=== PATIENT | male | born 1955 | race Caucasian/White ===

== ENCOUNTER 2024-04-22 01:04 | Inpatient (IN) | payer BC, SELFPAY ==
--- OUTSIDE RECORDS SUMMARY | 2024-04-22 01:10 | XMS_ITS | Continuity of Care Document ---
Author Organization [facility] ter Address [address] [place] [address]- Care Team Providers Care Advanced Practice Registered Nurse Name Role Phone Lesley HUITRON, Girma Brown Primary [facility] - 05/12/[address] [address]- [facility] Attending Physician: Chetan HUITRON, Anthony Hampton
--- OUTSIDE RECORDS SUMMARY | 2024-04-22 01:10 | XMS_ITS | Continuity of Care Document ---
Author Organization [facility] ter Address [address] [place] [address]- Care Team Providers Care Instrumentation Specialist Name Role Phone Lesley HUITRON, Girma Brown Primary Care Physician [facility] Date(s): 12/24/19 - 12/25/[address] [address]- [facility] Attending Physician: Chetan HUITRON, Anthony Hampton
--- OUTSIDE RECORDS SUMMARY | 2024-04-22 01:10 | XMS_ITS | Continuity of Care Document ---
Author Organization [facility] ter Address [address] [place] [address]- Care Team Providers Care Hospice Clinical Manager Name Role Phone Lesley HUITRON, Girma Brown Primary Care Physician [facility] Date(s): 08/04/19 - 08/05/[address] [address]- [facility] Attending Physician: Chetan HUITRON, Anthony Hampton
--- OUTSIDE RECORDS SUMMARY | 2024-04-22 01:10 | XMS_ITS | Continuity of Care Document ---
Author Organization [facility] ter Address [address] [place] [address]- Care Team Providers Care Belt And Link Shop Supervisor Name Role Phone Lesley HUITRON, Girma Brown Primary Care Physician [facility] 10/01/19 - 10/02/[address] [address]- [facility] Attending Physician: Chetan HUITRON, Anthony Hampton
--- OUTSIDE RECORDS SUMMARY | 2024-04-22 01:10 | XMS_ITS | Continuity of Care Document ---
Author Organization [facility] ter Address [address] [place] [address]- Care Team Providers Care Train Operations Manager Name Role Phone Lesley HUITRON, Girma Brown Primary Care Physician [facility] Date[facility]s): 01/21/20 - 02/19/[address] [address]- [facility] Attending Physician: Chetan HUITRON, Anthony Hampton
--- OUTSIDE RECORDS SUMMARY | 2024-04-22 01:10 | XMS_ITS | Continuity of Care Document ---
Author Organization [facility] ter Address [address] [place] [address]- Care Team Providers Care Wall Covering Installer Name Role Phone Lesley HUITRON, Girma Brown Primary Care Physician [facility] Date[facility]s): 04/13/20 - 04/14/[address] [address]- [facility] Attending Physician: Chetan HUITRON, Anthony Hampton
--- OUTSIDE RECORDS SUMMARY | 2024-04-22 01:10 | XMS_ITS | Continuity of Care Document ---
Author Organization [facility] ter Address [address] [place] [address]- Care Team Providers Care Pre Billing Clinician Name Role Phone Lesley HUITRON, Girma Brown Primary Care Physician [facility] Date[facility]s): 03/16/20 - 03/17/[address] [address]- [facility] Attending Physician: Chetan HUITRON, Anthony Hampton
--- OUTSIDE RECORDS SUMMARY | 2024-04-22 01:10 | XMS_ITS | Continuity of Care Document ---
Author Organization [facility] ter Address [address] [place] [address]- Care Team Providers Care Blow Molding Machine Operator Name Role Phone Lesley HUITRON, Girma Brown Primary Care Physician [facility]s): 01/21/20 - 01/22/[address] [address]- [facility] Attending Physician: Chetan HUITRON, Anthony Hampton
--- OUTSIDE RECORDS SUMMARY | 2024-04-22 01:10 | XMS_ITS | Continuity of Care Document ---
Author Organization [facility] ter Address [address] [place] [address]- Care Team Providers Care Mill Stenciler Name Role Phone Lesley HUITRON, Girma Brown Primary Care Physician [facility]s): 07/08/19 - 08/05/[address] [address]- [facility] Attending Physician: Chetan HUITRON, Anthony Hampton
--- OUTSIDE RECORDS SUMMARY | 2024-04-22 01:10 | XMS_ITS | Continuity of Care Document ---
Author Organization [facility] ter Address [address] [place] [address]- Care Team Providers Care Regional Director Of Finance Name Role Phone Lesley HUITRON, Girma Brown Primary Care Physician [phone] Encounter [facility] Date(s): 11/26/19 - 11/27/[address] [address]- [facility] Attending Physician: Chetan HUITRON, Anthony Hampton
--- OUTSIDE RECORDS SUMMARY | 2024-04-22 01:10 | XMS_ITS | Continuity of Care Document ---
Author Organization [facility] ter Address [address] [place] [address]- Care Team Providers Care Performance Makeup Artist Name Role Phone Lesley HUITRON, Girma Brown Primary Care Physician [facility](s): 10/30/19 - 11/27/[address] [address]- [facility] Attending Physician: Chetan HUITRON, Anthony Hampton
--- OUTSIDE RECORDS SUMMARY | 2024-04-22 01:10 | XMS_ITS | Continuity of Care Document ---
Author Organization [facility] ter Address [address] [place] [address]- Care Team Providers Care Circuit Board Assembler Name Role Phone Lesley HUITRON, Girma Brown Primary Care Physician [facility] 02/17/20 - 02/18/[address] [address]- [facility] Attending Physician: Chetan HUITRON, Anthony Hampton
--- OUTSIDE RECORDS SUMMARY | 2024-04-22 01:10 | XMS_ITS | Continuity of Care Document ---
Author Organization [facility] ter Address [address] [place] [address]- Care Team Providers Care Photostat Operator Name Role Phone Lesley HUITRON, Girma Brown Primary Care Physician [phone] [facility] 09/01/19 - 09/02/[address] [address]- [facility] Attending Physician: Chetan HUITRON, Anthony Hampton
--- OUTSIDE RECORDS SUMMARY | 2024-04-22 01:10 | XMS_ITS | Continuity of Care Document ---
Author Organization [facility] ter Address [address] [place] [address]- Care Team Providers Care Manager Operations Research Name Role Phone Lesley HUITRON, Girma Brown Primary Care Physician [phone] [facility]s): 10/01/19 - 10/30/[address] [address]- [facility] Attending Physician: Chetan HUITRON, Anthony Hampton
--- OUTSIDE RECORDS SUMMARY | 2024-04-22 01:10 | XMS_ITS | Continuity of Care Document ---
Author Organization [facility] ter Address [address] [place] [address]- Care Team Providers Care Loan And Credit Manager Name Role Phone Lesley HUITRON, Girma Brown Primary Care Physician [facility]s): 10/23/19 - 10/30/[address] [address]- [facility] Attending Physician: Chetan HUITRON, Anthony Hampton
--- OUTSIDE RECORDS SUMMARY | 2024-04-22 01:10 | XMS_ITS | Continuity of Care Document ---
Author Organization [facility] ter Address [address] [place] [address]- Care Team Providers Care Hvac Residential Service Technician Name Role Phone Lesley HUITRON, Girma Brown Primary Care Physician [facility]counter [facility](s[facility] 10/29/19 - 10/30/[address] [address]- [facility] Attending Physician: Chetan HUITRON, Anthony Hampton
[2024-04-22 01:30] VITALS: BP 141/80; PULSE 88; RESP 18; TEMP 36.6; O2SAT 96
[2024-04-22 01:45] VITALS: BMI 27.6
--- NOTE | 2024-04-22 03:45 | PC.ADMIT ---
Josh is a 68 year old male that presented to [facility] ED due to not feeling himself . Patient reported that he stopped taking his medications for 2-3 days and has not eaten and spent the entire weekend in bed, coming out of the bed just to use the bathroom. Patient presented with thoughts of SI at the time of admission at [facility]. Patient reporting poor social and coping skills and wanted a way to improve them. Patient was UTOX negative. On arrival to the [facility] at 0130 patient signed in on a CV. Patient reported anxiety 01/13 with depression /. Patient denies any current SI/HI and stated he feels he is able to notify staff if this should change. Patient denies any AH/VH. Patient does not use alcohol or any other street drugs. Patient is diabetic and utilizes oral agents and Lantus insulin. Patient skin check done and only issues noted was dry feet with thick toenails. Patient placed on 15 minute safety checks. Dietary consult ordered due to patient not eating for 2-4 days. H&P will need to be done by hospitalist, was notified at 0230. Patient is a non smoker and declined the flu shot. Only medical item noted was his creatinine clearance is low. An EKG and am labs have been ordered for 04/22/2024 in the am.
[2024-04-22 07:51] VITALS: BP 147/76; PULSE 88; RESP 18; TEMP 36.9; O2SAT 94
[2024-04-22] MEDS: DULoxetine HCl 60 MG CAPSULE.DR PO (08:18)
[2024-04-22] MEDS: Empagliflozin 25 MG TABLET PO (08:19)
[2024-04-22] MEDS: Atorvastatin Calcium 80 MG TABLET PO (08:19)
[2024-04-22] MEDS: metFORMIN HCl 1,000 MG TABLET 1000 MG PO ×2 (08:19→18:17)
[2024-04-22] MEDS: lisinopriL 5 MG TABLET PO (08:20)
[2024-04-22] MEDS: buPROPion HCL 75 MG TABLET PO (08:20)
[2024-04-22] MEDS: Metoprolol Succinate ER 50 MG TAB.ER.24H PO (08:20)
[2024-04-22] MEDS: Acetaminophen 325 MG TABLET 650 MG PO (08:27)
--- NOTE | 2024-04-22 09:00 | ECG_ITS ---
Test Reason : Baseline Blood Pressure : / mmHG Vent. Rate : 089 BPM Atrial Rate : 089 BPM P-R Int : 128 ms QRS Dur : 084 ms QT Int : 362 ms P-R-T Axes : 057 -41 075 degrees QTc Int : 440 ms Normal sinus rhythm Left axis deviation Inferior infarct , age undetermined Abnormal ECG No previous ECGs available Referred By: Daljit Johansen Electronically Signed By:FLAVIA THORNTON
[2024-04-22 09:11] LABS: Estimated Average Glucose 140 mg/dL; Hemoglobin A1c % 6.5 % (<6.0)
[2024-04-22 09:18] LABS: Alanine Aminotransferase 19 U/L (0-40); Albumin Level 4.6 g/dL (3.5-5.0); Alkaline Phosphatase 51 U/L (39-117); Anion Gap 16 (12-20); Aspartate Amino Transferase 24 U/L (5-37); Bilirubin Total 0.5 mg/dL (0.0-1.0); Blood Urea Nitrogen 21 mg/dL (9-16); Calcium 10.1 mg/dL (8.4-10.2); Carbon Dioxide 26 mmol/L (22-29); Chloride 100 mmol/L (96-108); Cholesterol 134 mg/dL (<200); Creatinine Clr Calc Pharmacy 59.3; Estimated Glomerular Filt Rate > 60; Glucose Fasting 155 mg/dL (60-99); HDL Cholesterol 33 mg/dL (>40); LDL Cholesterol Calculated 64 mg/dL (<100); Potassium 4.3 mmol/L (3.3-5.1); Sodium 138 mmol/L (135-145); Total Protein 8.1 g/dL (6.5-8.0); Triglycerides 186 mg/dL (<150)
[2024-04-22 09:37] LABS: TSH reflex Free T4 1.56 uIU/mL (0.32-4.0)
[2024-04-22] MEDS: Ezetimibe 10 MG TABLET PO (09:58)
--- NOTE | 2024-04-22 10:09 | HO.PM.IMCN ---
History of Present Illness Data of Consult Service Date: 04/22/24 Requesting physician: Daljit Johansen Primary Care Provider: Unknown Physician HPI Reason for consult: Medical H and P 68-year-old male with history of insulin-dependent type 2 diabetes, hypertension, mood disorder, hyperlipidemia admitted to adult Psychiatry consult placed hospitalist service for medical H and P. The patient is unavailable to me at time of examination as he is currently meeting with another provider/staff member, however there does not appear to be any acute medical issues person at this time. RN reports no complaints from patient except for dry feet. While at [facility] ED, hematology studies unremarkable. Renal function with slightly bumped at 1.25, electrolyte levels normal except for chloride 97, CO2 18 but improved to 21. Glucose was 182. Hepatic function within normal limits. Urine tox screen negative. Urinalysis with 4+ glucosuria, 2+ ketones, elevated specific gravity but not indicative of infection. EKG showed NSR, rate ED without any acute ischemic changes, EKG unchanged from priors. Review of Systems Review of Systems: Yes Other (unavailable at time of exam) [facility] Medical History Type 2 diabetes mellitus Social History Household Members: Significant Other and Children Housing: House Do you presently have visiting nurse or other home services: No Patient Tobacco Use Status: Never used Tobacco Smoked in Last 30 Days: No Patient Interested in Nicotine Replacement: No Patient Given Instructions on How to Stop Smoking: No Second Hand Smoke Exposure: No Use of substances other than those prescribed or required for medical reasons: No Currently Displaying Signs/Symptoms of Drug Intoxication Withdrawal: No Any prior treatment program specific to substance use: No Have you been hit, kicked, punched, or otherwise hurt by someone within the past year? If so, by whom?: No Do you feel safe in your current relationship?: Yes Is there a partner from a previous relationship who is making you feel unsafe now?: No Are you made to feel afraid or neglected: No Spiritual Healthcare Practices: none reported Spiritism Healthcare Practices: none reported Cultural Healthcare Practices: none reported Advance Directives: No Advance Directives Information Provided: Yes Do you have thoughts of harming others: None Do you have a plan to hurt others: No Plan Recently lost weight without trying: Yes How much weight loss: Unsure Eating poorly because of decreased appetite: Yes Nutrition screen score: 5 Nutrition Risks: Poor intake 0-25% >4 days Poor oral hygiene: No service: No Sexual orientation: Straight/Heterosexual Meds Allergies Allergy/AdvReac Type Severity Reaction Status Date / Time No Known Allergies Allergy Verified 04/22/24 01:43 Active Medications: Current Medications Acetaminophen (Acetaminophen 325 Mg Tablet) 650 mg PO Q6H PRN PRN Reason: Headache/Pain Mild Scale (1-3) Last Admin: 04/22/24 08:27 Dose: 650 mg Al Hydroxide/Mg Hydroxide (Magnesium Hydrox/Alum Hydrox 30 Ml Oral.Susp) 30 ml PO Q6H PRN PRN Reason: Heartburn/Nausea Atorvastatin Calcium (Atorvastatin Calcium 80 Mg Tablet) 80 mg PO DAILY [facility] Last Admin: 04/22/24 08:19 Dose: 80 mg Bupropion HCl (Bupropion Hcl 75 Mg Tablet) 75 mg PO DAILY [facility] Last Admin: 04/22/24 08:20 Dose: 75 mg Duloxetine HCl (Duloxetine Hcl 60 Mg Capsule.Dr) 60 mg PO DAILY [facility] Last Admin: 04/22/24 08:18 Dose: 60 mg Ezetimibe (Ezetimibe 10 Mg Tablet) 10 mg PO DAILY [facility] Last Admin: 04/22/24 09:58 Dose: 10 mg Empagliflozin (Empagliflozin 25 Mg Tablet) 25 mg PO DAILY [facility] Last Admin: 04/22/24 08:19 Dose: 25 mg Hydroxyzine HCl (Hydroxyzine Hcl 25 Mg Tablet) 25 mg PO Q6H PRN PRN Reason: Anxiety Lisinopril (Lisinopril 5 Mg Tablet) 5 mg PO DAILY [facility]; Protocol Last Admin: 04/22/24 08:20 Dose: 5 mg Magnesium Hydroxide (Milk Of Magnesia 30 Ml Oral.Susp) 30 ml PO DAILY PRN PRN Reason: Constipation Metformin HCl (Metformin Hcl 1,000 Mg Tablet) 1,000 mg PO BID [facility] Last Admin: 04/22/24 08:19 Dose: 1,000 mg Metoprolol Succinate (Metoprolol Succinate Er 50 Mg Tab.Er.24h) 50 mg PO DAILY [facility]; Protocol Last Admin: 04/22/24 08:20 Dose: 50 mg Nicotine (Nicotine 21 Mg Patch.Td24) 21 mg TRANSDERMA DAILY PRN PRN Reason: smoking cessation Nicotine Polacrilex (Nicotine Polacrilex 2 Mg Gum) 4 mg BUCCAL Q2H PRN PRN Reason: Nicotine Cravings Non-Formulary Medication (Fenofibrate Micronized) 200 mg PO DAILY [facility]ARY Trazodone HCl (Trazodone Hcl 50 Mg Tablet) 50 mg PO BEDTIME MRX1 PRN PRN Reason: Insomnia Trazodone HCl (Trazodone Hcl 50 Mg Tablet) 50 mg PO BEDTIME MARY Trazodone HCl (Trazodone Hcl 50 Mg Tablet) 50 mg PO BEDTIME MARY Home Medications ?Medication ?Instructions ?Recorded ?Confirmed ?Last Taken ?Type bupropion HCl 75 mg tablet 75 mg PO QAM 04/22/24 04/22/24 04/18/24 09:00 History 75 mg duloxetine 60 mg capsule,delayed 60 mg PO DAILY 04/22/24 04/22/24 04/18/24 09:00 History release 60 mg empagliflozin 25 mg tablet 25 mg PO DAILY 04/22/24 04/22/24 04/18/24 09:00 History (Jardiance) 25 mg ezetimibe 10 mg tablet 10 mg PO DAILY 04/22/24 04/22/24 04/18/24 09:00 History 10 mg fenofibrate micronized 200 mg 200 mg PO DAILY 04/22/24 04/22/24 04/18/24 09:00 History capsule 200 mg insulin glargine 100 unit/mL 40 unit subcut BID 04/22/24 04/22/24 04/18/24 21:00 History subcutaneous solution (Lantus U-100 Insulin) lisinopril 5 mg tablet 5 mg PO DAILY 04/22/24 04/22/24 04/18/24 09:00 History 5 mg metformin 1,000 mg tablet 1,000 mg PO BID 04/22/24 04/22/24 04/18/24 18:00 History 1000 mg metoprolol succinate 50 mg 50 mg PO DAILY 04/22/24 04/22/24 04/18/24 09:00 History tablet,extended release 24 hr 50 mg rosuvastatin 20 mg tablet 20 mg PO BEDTIME 04/22/24 04/22/24 04/18/24 21:00 History 20 mg trazodone 50 mg tablet 50 mg PO BEDTIME 04/22/24 04/22/2424 21:00 History 50 mg Physical Exam Vital Signs and Narrative: Vital Signs: Last Vital Signs Temp 98.5 F 04/22/24 07:51 Pulse 88 04/22/24 07:51 Resp 18 04/22/24 07:51 BP 147/76 H 04/22/24 07:51 Pulse Ox 94 04/22/24 07:51 O2 Del Method Room Air 04/22/24 07:51 BMI result Body Mass Index 27.6 Pt unavailable to meet as he is meeting with another provider/staff member Results Labs 04/22/24 08:45 Labs: Laboratory Results - last 24 hr 04/22/24 08:45 Anion Gap 16 Estim Creat Clear Calc 59.3 Estimated GFR > 60 Fasting Glucose 155 H Estimat Average Glucose 140 Hemoglobin A1c % 6.5 H Calcium 10.1 Total Bilirubin 0.5 AST 24 ALT 19 Alkaline Phosphatase 51 Total Protein 8.1 H Albumin 4.6 Triglycerides 186 H Cholesterol 134 LDL Cholesterol, Calc 64 HDL Cholesterol 33 L TSH 1.56 Assessment and Plan (1) Routine medical exam: Status: Acute Plan 68-year-old male with history of insulin-dependent type 2 diabetes, hypertension, mood disorder, hyperlipidemia admitted to adult Psychiatry consult placed hospitalist service for medical H and P. #Mood disorder -plan per psych #Type 2 DM -check baseline hgb a1c to evlauate overall diabetes control -continue lantus, metformin, jardiance (for now) -poc glucose. Recommend diabetic diet/snacking with education reinforcement from staff to prevent hyperglycemia #HTN -continue metoprolol, lisinopril #HLD -statin, zetia Given jardiance use with mildly elevated creat, slightly low co2 (18), +ketones, check BMP, VBG, beta hydroxybutyrate now to evaluate for euglycemic keotacidosis though patient is asymptomatic and results could be related to dehydration. Will follow for results
--- NOTE | 2024-04-22 10:17 | MHC.CLN ---
NUTRITION CONSULT FOR PATIENT NOT EATING FOR PAST 3-4 DAYS. VISITED WITH PATIENT ON UNIT. STATED THAT HE ATE WHILE HERE LAST NIGHT AND ATE BREAKFAST (100%). AWARE THAT CAN MAKE OWN FOOD CHOICES AND THAT SNACKS AVAILABLE ON THE UNIT. APPEARS WELL NOURISHED. NO FOOD CONCERNS OR LACK OF APPETITE NOTED. NO ADDITIONAL NUTRITION INTERVENTIONS AT THIS TIME.
--- NOTE | 2024-04-22 10:43 | P.HPPS_ITS ---
HPI Date of Service: 04/22/24 Chief Complaint: SI, Unspecified Depressive Disorder Sources of Information: patient interviewed, chart reviewed and crisis/core team assessment reviewed Additional Sources of Information: Pt seen at 11am on 04/22/24 HPI Subjective Notes: Lay Warning and Conditional Voluntary Narrative: Mr. Teixeira is a 68 year-old male with hx of opioid use disorder in early remission per pt, depression who was brought by family to [facility] due to worsening of depression, not eating, no motivation, oversleeping. He reported passive suicidal thoughts. Utox was negative for barbiturate, cocaine, cannabinoids and opioids. Not tested for synthetic options, which pt reports hx of abuse. On the unit, pt presents as withdrawn, some delayed in responses, he reports depressed mood for the past 2 months. He reports in past week increase in symptoms of depression. He endorses anhedonia, over sleeping, no appetite, depressed mood. He denies any plan or intent to harm himself but does report thinking about dying and thoughts that life is not worth living. He reports hx of 10 years of buying percocet on the streets. He is unable to tell this property underwriter amount, other than it depended on whether he had money or not and reports it was not daily. He denies recent use of opioids. However, per [facility] documentation, his suspects that he may have relapsed on opioids. Utox for synthetic opioids not completed at [facility]. He denies hx of VH/AH. He denies hx of suicide attempts. He denies periods of increase energy, grandiose delusions. No prior psychiatric admissions. Past Psychiatric History: Inpt: none prior OP: none. He reports in the past he had OP therapy at [facility]. Past trial meds: wellbutrin, cymbalta, suboxone Medical Evaluation Reviewed: Yes cbc unremarkable. CMP with anion gap metabolic acidosis. UA without signs of UTI, but did have elevated ketones, which assumed in combination with metabolic acidosis due to dehydration. He was given IV fluids with improvement in metabolic acidosis. [facility] Medical History Type 2 diabetes mellitus Family History: denies Social History: Pt with current partner, Anat for the past 26 years. They have a son together. He has worked for the past 24 years at [employer] in [place]. Substance History: He reports 10 year hx of buying percocets on the streets. He is not able to tell this property underwriter amount. He reports he stopped using since Sep 2023. He denies any recent use, although suspects he may have relapsed. He denies cocaine or alcohol use. Trauma History: denies Diagnostics Vital Signs (24Hr): Vital Signs - 24 hr 04/22/24 01:30 04/22/24 07:51 Temperature 97.9 F 98.5 F Pulse Rate 88 88 Respiratory Rate 18 18 Blood Pressure 141/80 H 147/76 H Pulse Oximetry 96 94 Oxygen Delivery Method Room Air Room Air BMI result Body Mass Index 27.6 Labs 04/22/24 16:54 Labs: Laboratory Results - last 48 hr 04/22/24 08:45 Sodium 138 Potassium 4.3 Chloride 100 Carbon Dioxide 26 Anion Gap 16 BUN 21 H Creatinine 1.20 Estim Creat Clear Calc 59.3 Estimated GFR > 60 Fasting Glucose 155 H Estimat Average Glucose 140 Hemoglobin A1c % 6.5 H Calcium 10.1 Total Bilirubin 0.5 AST 24 ALT 19 Alkaline Phosphatase 51 Total Protein 8.1 H Albumin 4.6 Triglycerides 186 H Cholesterol 134 LDL Cholesterol, Calc 64 HDL Cholesterol 33 L TSH 1.56 Meds/Allergies Meds Home Medications ?Medication ?Instructions ?Recorded ?Confirmed ?Type bupropion HCl 75 mg tablet 75 mg PO QAM 04/22/24 04/22/24 History duloxetine 60 mg capsule,delayed 60 mg PO DAILY 04/22/24 04/22/24 History release empagliflozin 25 mg tablet 25 mg PO DAILY 04/22/24 04/22/24 History (Jard[facility]) ezetimibe 10 mg tablet 10 mg PO DAILY 04/22/24 04/22/24 History fenofibrate micronized 200 mg 200 mg PO DAILY 04/22/24 04/22/24 History capsule insulin glargine 100 unit/mL 40 unit subcut BID 04/22/24 04/22/24 History subcutaneous solution (Lantus U-100 Insulin) lisinopril 5 mg tablet 5 mg PO DAILY 04/22/24 04/22/24 History metformin 1,000 mg tablet 1,000 mg PO BID 04/22/24 04/22/24 History metoprolol succinate 50 mg 50 mg PO DAILY 04/22/24 04/22/24 History tablet,extended release 24 hr rosuvastatin 20 mg tablet 20 mg PO BEDTIME 04/22/24 04/22/24 History trazodone 50 mg tablet 50 mg PO BEDTIME 04/22/24 04/22/24 History Allergies Allergies Allergy/AdvReac Type Severity Reaction Status Date / Time No Known Allergies Allergy Verified 04/22/24 01:43 Mental Status Exam Mental Status Exam Narrative: Appearance: wearing hospital gown, sitting, staring in the dark, in NAD Behavior: cooperative Psychomotor: some retardation noted Speech: clear, some delayed in response, spontaneous TP: linear TC: feeling depressed, worried about impact of his mood on his family Mood: depressed Affect: constricted, congruent SI: passive, no plan or intent HI: none VH/AH: none Delusions: none Insight/judgment: poor x 2. Memory/cog: alert, oriented x 3. no formal cognitive assessment. Assessment & Plan Assessment & Plan (1) MDD (major depressive disorder), recurrent episode, severe: Status: Acute Code(s): F33.2 - Major depressive disorder, recurrent severe without psychotic features (2) Opioid use disorder, moderate, in early remission: Status: Acute Code(s): F11.21 - Opioid dependence, in remission Plan Mr. Teixeira is a 68 year-old male with hx of MDD, who was brought in by family to [facility] due to increase depression in past week, but depressed for about 2 months. He presents with symptoms of anhedonia, depressed mood, decrease appetite, over sleeping, passive SI. Utox neg at [facility] for cocaine, cannabinoids, barbiturates, opioids. No utox completed for synthetic opioids, which is what he usually would misuse and buy on the streets. We discussed risks, benefits and alternative treatment options. He agreed to increase wellbutrin to 150mg po daily and change to extended release formulation. He also agree to increase cymbalta to 90mg po daily. PLAN 1. Admit to [facility], CV, 15 minutes checks for safety. 2. increase wellbutrin and change to extended formulation to 150mg po daily. Increase cymbalta to 90mg po daily. 3. obtain collateral information 4. aftercare planning. Patient educated on: diagnosis Informed Consent: understands Reason for continued inpatient stay Substantial Risk for: harm to self and inability to function Statement Statement: I have reviewed the history and physical and performed a pertinent examination on my patient. No changes have occurred unless specified. If the History and Physical was not performed prior to admission, the Hospitalist's service will be consulted for completing the admission physical. Time Spent With Patient Time: Total time managing care of this patient today __35__ minutes.
[2024-04-22 15:09] LABS: Folate 12.2 ng/mL (> or = 4.0); Vitamin B12 369 pg/mL (200-900)
[2024-04-22 17:10] LABS: VBG Base Excess 0.4 mmol/L; VBG HCO3 25 mmol/L (22-26); VBG pCO2 41 mmHg; VBG pH 7.39 (7.32-7.43); VBG pO2 36 mmHg
[2024-04-22 17:18] LABS: Venous Blood Gas Refer to POC result
[2024-04-22 17:35] LABS: Anion Gap 17 (12-20); Beta-Hydroxybutyrate 0.16 mmol/L (0.02-0.27); Blood Urea Nitrogen 25 mg/dL (9-16); Calcium 10.8 mg/dL (8.4-10.2); Carbon Dioxide 25 mmol/L (22-29); Chloride 101 mmol/L (96-108); Creatinine Clr Calc Pharmacy 52.7; Estimated Glomerular Filt Rate 53; Glucose Random 193 mg/dL (60-115); Potassium 4.7 mmol/L (3.3-5.1); Sodium 138 mmol/L (135-145)
[2024-04-22 18:09] LABS: Glucose, Whole Blood 181 mg/dL (60-115)
[2024-04-22] MEDS: Insulin Glargine,Hum.rec.anlog 100 UNIT/ML 10 ML VIAL 40 UNIT SUBCUT (18:17)
[2024-04-22 20:00] VITALS: BP 147/76; PULSE 88; RESP 18; TEMP 36.9; O2SAT 94
[2024-04-23 07:30] VITALS: BP 112/59; PULSE 73; RESP 14; TEMP 36.6; O2SAT 96
[2024-04-23 07:52] VITALS: BP 112/59; PULSE 73; RESP 14; TEMP 36.6; O2SAT 96
[2024-04-23] MEDS: DULoxetine HCl 30 MG CAPSULE.DR 90 MG PO (08:38)
[2024-04-23] MEDS: lisinopriL 5 MG TABLET PO (08:39)
[2024-04-23] MEDS: metFORMIN HCl 1,000 MG TABLET 1000 MG PO ×2 (08:39→17:14)
[2024-04-23] MEDS: Ezetimibe 10 MG TABLET PO (08:39)
[2024-04-23] MEDS: buPROPion HCl XL 150 MG TAB.ER.24H PO (08:39)
[2024-04-23] MEDS: Empagliflozin 25 MG TABLET PO (08:40)
[2024-04-23] MEDS: Atorvastatin Calcium 80 MG TABLET PO (08:40)
[2024-04-23] MEDS: Metoprolol Succinate ER 50 MG TAB.ER.24H PO (08:40)
[2024-04-23 08:41] LABS: Glucose, Whole Blood 123 mg/dL (60-115)
[2024-04-23] MEDS: Insulin Glargine,Hum.rec.anlog 100 UNIT/ML 10 ML VIAL 40 UNIT SUBCUT ×2 (08:55→18:34)
--- NOTE | 2024-04-23 10:24 | HO.PSYCHPN ---
Subjective Subjective Date of Service: 04/23/24 Reason For Visit: SI, Unspecified Depressive Disorder Subjective Notes: Conditional Voluntary Interim History: Pt slept through the night. He continues to report depressed mood, hopeless, helpless. No plans or intent to harm self but continues to struggle with getting out of bed, having motivation to initiate activities. He started higher dose of wellbutrin and cymbalta. He has attended some groups. Medication Compliance: Yes Review of Systems Review of Systems He denies pain. No chest pain. No SOB. Yes Other (unavailable at time of exam) Mental Status Exam Mental Status Exam Narrative: Appearance: wearing hospital gown, sitting, staring in the dark, in NAD Behavior: cooperative Psychomotor: some retardation noted Speech: clear, some delayed in response, spontaneous TP: linear TC: feeling depressed, worried about impact of his mood on his family Mood: depressed Affect: constricted, congruent SI: passive, no plan or intent HI: none VH/AH: none Delusions: none Insight/judgment: poor x 2. Memory/cog: alert, oriented x 3. no formal cognitive assessment. Diagnostics Vital Signs (24Hr): Vital Signs - 24 hr 04/22/24 20:00 04/23/24 07:30 04/23/24 07:52 Temperature 98.5 F 97.8 F 97.8 F Pulse Rate 88 73 73 Respiratory Rate 18 14 14 Blood Pressure 147/76 H 112/59 L 112/59 L Pulse Oximetry 94 96 96 Oxygen Delivery Method Room Air Room Air Room Air BMI result Body Mass Index 27.6 Labs 04/22/24 16:54 Labs: Laboratory Results - last 48 hr 04/22/24 04/22/24 04/22/24 08:45 14:07 16:54 VBG pH VBG pCO2 VBG pO2 VBG HCO3 VBG O2 Saturation VBG Base Excess Sodium 138 138 Potassium 4.3 4.7 Chloride 100 101 Carbon Dioxide 26 25 Anion Gap 16 17 BUN 21 H 25 H Creatinine 1.20 1.35 Estim Creat Clear Calc 59.3 52.7 Estimated GFR > 60 53 POC Glucose Random Glucose 193 H Fasting Glucose 155 H Estimat Average Glucose 140 Hemoglobin A1c % 6.5 H Calcium 10.1 10.8 H D Total Bilirubin 0.5 AST 24 ALT 19 Alkaline Phosphatase 51 Total Protein 8.1 H Albumin 4.6 Triglycerides 186 H Cholesterol 134 LDL Cholesterol, Calc 64 HDL Cholesterol 33 L Vitamin B12 369 Folate 12.2 Beta-Hydroxybutyrate 0.16 TSH 1.56 04/22/24 04/22/24 04/23/24 17:06 18:00 08:31 VBG pH 7.39 VBG pCO2 41 VBG pO2 36 VBG HCO3 25 VBG O2 Saturation 59.0 VBG Base Excess 0.4 Sodium Potassium Chloride Carbon Dioxide Anion Gap BUN Creatinine Estim Creat Clear Calc Estimated GFR POC Glucose 181 H 123 H Random Glucose Fasting Glucose Estimat Average Glucose Hemoglobin A1c % Calcium Total Bilirubin AST ALT Alkaline Phosphatase Total Protein Albumin Triglycerides Cholesterol LDL Cholesterol, Calc HDL Cholesterol Vitamin B12 Folate Beta-Hydroxybutyrate TSH Medications Medications Current Medications Acetaminophen (Acetaminophen 325 Mg Tablet) 650 mg PO Q6H PRN PRN Reason: Headache/Pain Mild Scale (1-3) Last Admin: 04/22/24 08:27 Dose: 650 mg Al Hydroxide/Mg Hydroxide (Magnesium Hydrox/Alum Hydrox 30 Ml Oral.Susp) 30 ml PO Q6H PRN PRN Reason: Heartburn/Nausea Atorvastatin Calcium (Atorvastatin Calcium 80 Mg Tablet) 80 mg PO DAILY [facility] Last Admin: 04/23/24 08:40 Dose: 80 mg Bupropion HCl (Bupropion Hcl Xl 150 Mg Tab.Er.24h) 150 mg PO DAILY [facility] Last Admin: 04/23/24 08:39 Dose: 150 mg Duloxetine HCl (Duloxetine Hcl 30 Mg Capsule.Dr) 90 mg PO DAILY [facility] Last Admin: 04/23/24 08:38 Dose: 90 mg Ezetimibe (Ezetimibe 10 Mg Tablet) 10 mg PO DAILY [facility] Last Admin: 04/23/24 08:39 Dose: 10 mg Empagliflozin (Empagliflozin 25 Mg Tablet) 25 mg PO DAILY [facility] Last Admin: 04/23/24 08:40 Dose: 25 mg Hydroxyzine HCl (Hydroxyzine Hcl 25 Mg Tablet) 25 mg PO Q6H PRN PRN Reason: Anxiety Insulin Glargine (Insulin Glargine,Hum.Rec.Anlog 100 Unit/Ml 10 Ml Vial) 40 unit SUBCUT BID@0800,1800 [facility] Last Admin: 04/23/24 08:55 Dose: 40 unit Lisinopril (Lisinopril 5 Mg Tablet) 5 mg PO DAILY [facility]; Protocol Last Admin: 04/23/24 08:39 Dose: 5 mg Magnesium Hydroxide (Milk Of Magnesia 30 Ml Oral.Susp) 30 ml PO DAILY PRN PRN Reason: Constipation Metformin HCl (Metformin Hcl 1,000 Mg Tablet) 1,000 mg PO BIDWM [facility] Last Admin: 04/23/24 08:39 Dose: 1,000 mg Metoprolol Succinate (Metoprolol Succinate Er 50 Mg Tab.Er.24h) 50 mg PO DAILY [facility]; Protocol Last Admin: 04/23/24 08:40 Dose: 50 mg Nicotine (Nicotine 21 Mg Patch.Td24) 21 mg TRANSDERMA DAILY PRN PRN Reason: smoking cessation Nicotine Polacrilex (Nicotine Polacrilex 2 Mg Gum) 4 mg BUCCAL Q2H PRN PRN Reason: Nicotine Cravings Non-Formulary Medication (Fenofibrate Micronized) 200 mg PO DAILY [facility] Trazodone HCl (Trazodone Hcl 50 Mg Tablet) 50 mg PO BEDTIME [facility] Last Admin: 04/22/24 21:30 Dose: Not Given Trazodone HCl (Trazodone Hcl 50 Mg Tablet) 50 mg PO BEDTIME PRN PRN Reason: Insomnia Allergies Allergies Allergy/AdvReac Type Severity Reaction Status Date / Time No Known Allergies Allergy Verified 04/22/24 01:43 Assessment & Plan Assessment & Plan (1) MDD (major depressive disorder), recurrent episode, severe: Status: Acute Code(s): F33.2 - Major depressive disorder, recurrent severe without psychotic features (2) Opioid use disorder, moderate, in early remission: Status: Acute Code(s): F11.21 - Opioid dependence, in remission Plan Mr. Teixeira is a 68 year-old male with hx of MDD, who was brought in by family to [facility] due to increase depression in past week, but depressed for about 2 months. He presents with symptoms of anhedonia, depressed mood, decrease appetite, over sleeping, passive SI. Utox neg at [place] for cocaine, cannabinoids, barbiturates, opioids. No utox completed for synthetic opioids, which is what he usually would misuse and buy on the streets. We discussed risks, benefits and alternative treatment options. He agreed to increase wellbutrin to 150mg po daily and change to extended release formulation. He also agree to increase cymbalta to 90mg po daily. PLAN 04/23- continue tx. Reason for continued inpatient stay Substantial Risk for: inability to function Time Spent With Patient Time: Total time managing care of this patient today ____ minutes.
[2024-04-23 17:08] LABS: Glucose, Whole Blood 167 mg/dL (60-115)
[2024-04-23 20:00] VITALS: BP 116/63; PULSE 85; RESP 16; TEMP 36.3; O2SAT 97
[2024-04-24 07:00] VITALS: BMI 25.9
[2024-04-24 07:50] VITALS: BP 116/62; PULSE 76; RESP 14; TEMP 36.7
[2024-04-24 08:11] LABS: Glucose, Whole Blood 121 mg/dL (60-115)
[2024-04-24] MEDS: metFORMIN HCl 1,000 MG TABLET 1000 MG PO ×2 (08:56→17:51)
[2024-04-24] MEDS: Insulin Glargine,Hum.rec.anlog 100 UNIT/ML 10 ML VIAL 40 UNIT SUBCUT ×2 (08:56→17:52)
[2024-04-24] MEDS: DULoxetine HCl 30 MG CAPSULE.DR 90 MG PO (08:56)
[2024-04-24] MEDS: Atorvastatin Calcium 80 MG TABLET PO (08:56)
[2024-04-24] MEDS: lisinopriL 5 MG TABLET PO (08:56)
[2024-04-24] MEDS: Empagliflozin 25 MG TABLET PO (08:57)
[2024-04-24] MEDS: Ezetimibe 10 MG TABLET PO (08:57)
[2024-04-24] MEDS: buPROPion HCl XL 150 MG TAB.ER.24H PO (08:57)
[2024-04-24] MEDS: Metoprolol Succinate ER 50 MG TAB.ER.24H PO (08:57)
--- NOTE | 2024-04-24 09:48 | P.PNPSI_ITS ---
Subjective Subjective Date of Service: 04/24/24 Reason For Visit: SI, Unspecified Depressive Disorder Subjective Notes: Conditional Voluntary Interim History: Reviewed with Dr. Obrien. Pt reports feeling anxious and depressed ; pt stated, I'm worried if I'm going to get better. I'm hoping the increase in medication will help . Pt reports passive SI with no plan. denies HI/VH/AH. He reports attending groups has been helpful. Per nursing, pt slept 8 hours last night. Medication Compliance: Yes Side effects from medications: No Attending Groups: Yes Review of Systems Constitutional: Reports as per HPI Eyes: Reports as per HPI Reports as per HPI Cardiovascular: Reports as per HPI Respiratory: Reports as per HPI Gastrointestinal: Reports as per HPI Genitourinary: Reports as per HPI Musculoskeletal: Reports as per HPI Skin/Breast: Reports as per HPI Reports as per HPI Psychiatric: Reports as per HPI Endocrine: Reports as per HPI Hematologic/Lymphatic: Reports as per HPI Allergic/Immunologic: Reports as per HPI Mental Status Exam Mental Status Exam Narrative: Pt is alert and oriented; behavior is cooperative, calm; dressed in casual attire; mood is described as anxious and depressed ; eye contact appropriate; Speech is normal rate, volume and not pressured; thought process is organized and goal directed; Thought content is on tx; denies HI/VH/AH. Passive SI with no plan. Diagnostics Vital Signs (24Hr): Vital Signs - 24 hr 04/23/24 20:00 04/24/24 07:50 Temperature 97.3 F 98.0 F Pulse Rate 85 76 Respiratory Rate 16 14 Blood Pressure 116/63 116/62 Pulse Oximetry 97 Oxygen Delivery Method Room Air Room Air BMI result Body Mass Index 27.6 Labs 04/22/24 16:54 Labs: Laboratory Results - last 48 hr 04/22/24 04/22/24 04/22/24 14:07 16:54 17:06 VBG pH 7.39 VBG pCO2 41 VBG pO2 36 VBG HCO3 25 VBG O2 Saturation 59.0 VBG Base Excess 0.4 Sodium 138 Potassium 4.7 Chloride 101 Carbon Dioxide 25 Anion Gap 17 BUN 25 H Creatinine 1.35 Estim Creat Clear Calc 52.7 Estimated GFR 53 POC Glucose Random Glucose 193 H Calcium 10.8 H D Vitamin B12 369 Folate 12.2 Beta-Hydroxybutyrate 0.16 09/04/23/24 04/23/24 18:00 08:31 17:04 VBG pH VBG pCO2 VBG pO2 VBG HCO3 VBG O2 Saturation VBG Base Excess Sodium Potassium Chloride Carbon Dioxide Anion Gap BUN Creatinine Estim Creat Clear Calc Estimated GFR POC Glucose 181 H 123 H 167 H Random Glucose Calcium Vitamin B12 Folate Beta-Hydroxybutyrate 04/24/24 08:05 VBG pH VBG pCO2 VBG pO2 VBG HCO3 VBG O2 Saturation VBG Base Excess Sodium Potassium Chloride Carbon Dioxide Anion Gap BUN Creatinine Estim Creat Clear Calc Estimated GFR POC Glucose 121 H Random Glucose Calcium Vitamin B12 Folate Beta-Hydroxybutyrate Medications Medications Current Medications Acetaminophen (Acetaminophen 325 Mg Tablet) 650 mg PO Q6H PRN PRN Reason: Headache/Pain Mild Scale (1-3) Last Admin: 04/22/24 08:27 Dose: 650 mg Al Hydroxide/Mg Hydroxide (Magnesium Hydrox/Alum Hydrox 30 Ml Oral.Susp) 30 ml PO Q6H PRN PRN Reason: Heartburn/Nausea Atorvastatin Calcium (Atorvastatin Calcium 80 Mg Tablet) 80 mg PO DAILY [facility] Last Admin: 04/24/24 08:56 Dose: 80 mg Bupropion HCl (Bupropion Hcl Xl 150 Mg Tab.Er.24h) 150 mg PO DAILY [facility] Last Admin: 04/24/24 08:57 Dose: 150 mg Duloxetine HCl (Duloxetine Hcl 30 Mg Capsule.Dr) 90 mg PO DAILY [facility] Last Admin: 04/24/24 08:56 Dose: 90 mg Ezetimibe (Ezetimibe 10 Mg Tablet) 10 mg PO DAILY [facility] Last Admin: 04/24/24 08:57 Dose: 10 mg Empagliflozin (Empagliflozin 25 Mg Tablet) 25 mg PO DAILY [facility] Last Admin: 04/24/24 08:57 Dose: 25 mg Hydroxyzine HCl (Hydroxyzine Hcl 25 Mg Tablet) 25 mg PO Q6H PRN PRN Reason: Anxiety Insulin Glargine (Insulin Glargine,Hum.Rec.Anlog 100 Unit/Ml 10 Ml Vial) 40 unit SUBCUT BID@0800,1800 [facility] Last Admin: 04/24/24 08:56 Dose: 40 unit Lisinopril (Lisinopril 5 Mg Tablet) 5 mg PO DAILY [facility]; Protocol Last Admin: 04/24/24 08:56 Dose: 5 mg Magnesium Hydroxide (Milk Of Magnesia 30 Ml Oral.Susp) 30 ml PO DAILY PRN PRN Reason: Constipation Metformin HCl (Metformin Hcl 1,000 Mg Tablet) 1,000 mg PO BIDWM COUNT INCLUDES [facility] Last Admin: 04/24/24 08:56 Dose: 1,000 mg Metoprolol Succinate (Metoprolol Succinate Er 50 Mg Tab.Er.24h) 50 mg PO DAILY [facility]; Protocol Last Admin: 04/24/24 08:57 Dose: 50 mg Nicotine (Nicotine 21 Mg Patch.Td24) 21 mg TRANSDERMA DAILY PRN PRN Reason: smoking cessation Nicotine Polacrilex (Nicotine Polacrilex 2 Mg Gum) 4 mg BUCCAL Q2H PRN PRN Reason: Nicotine Cravings Non-Formulary Medication (Fenofibrate Micronized) 200 mg PO DAILY [facility] Trazodone HCl (Trazodone Hcl 50 Mg Tablet) 50 mg PO BEDTIME [facility]CLUDES [facility] Last Admin: 04/23/24 19:56 Dose: Not Given Trazodone HCl (Trazodone Hcl 50 Mg Tablet) 50 mg PO BEDTIME PRN PRN Reason: Insomnia Allergies Allergies Allergy/AdvReac Type Severity Reaction Status Date / Time No Known Allergies Allergy Verified 04/22/24 01:43 Assessment & Plan Assessment & Plan (1) MDD (major depressive disorder), recurrent episode, severe: Status: Acute Code(s): F33.2 - Major depressive disorder, recurrent severe without psychotic features (2) Opioid use disorder, moderate, in early remission: Status: Acute Code(s): F11.21 - Opioid dependence, in remission Plan Mr. Teixeira is a 68 year-old male with hx of MDD, who was brought in by family to [facility] due to increase depression in past week, but depressed for about 2 months. He presents with symptoms of anhedonia, depressed mood, decrease appetite, over sleeping, passive SI. Utox neg at [place] for cocaine, cannabinoids, barbiturates, opioids. No utox completed for synthetic opioids, which is what he usually would misuse and buy on the streets. We discussed risks, benefits and alternative treatment options. He agreed to increase wellbutrin to 150mg po daily and change to extended release formulation. He also agree to increase cymbalta to 90mg po daily. PLAN 04/23- continue tx. 04/24: Pt reports feeling anxious and depressed ; pt stated, I'm worried if I'm going to get better. I'm hoping the increase in medication will help . Pt reports passive SI with no plan. denies HI/VH/AH. He reports attending groups has been helpful. Per nursing, pt slept 8 hours last night. Continue current tx plan. Patient educated on: diagnosis, medication risk/benefits and therapeutic strategies Reason for continued inpatient stay Substantial Risk for: med/psych decompensation Time Spent With Patient Time: Total time managing care of this patient today _20___ minutes.
[2024-04-24 17:45] LABS: Glucose, Whole Blood 216 mg/dL (60-115)
[2024-04-24 20:00] VITALS: BP 134/71; PULSE 87; RESP 16; TEMP 36.6; O2SAT 95
[2024-04-24] MEDS: traZODone HCL 50 MG TABLET PO (21:27)
[2024-04-25 07:37] VITALS: BP 118/61; PULSE 60; RESP 14; TEMP 36.3; O2SAT 96
[2024-04-25] MEDS: DULoxetine HCl 30 MG CAPSULE.DR 90 MG PO (08:31)
[2024-04-25] MEDS: Metoprolol Succinate ER 50 MG TAB.ER.24H PO (08:32)
[2024-04-25] MEDS: Empagliflozin 25 MG TABLET PO (08:32)
[2024-04-25] MEDS: Ezetimibe 10 MG TABLET PO (08:32)
[2024-04-25] MEDS: metFORMIN HCl 1,000 MG TABLET 1000 MG PO ×2 (08:32→18:09)
[2024-04-25] MEDS: buPROPion HCl XL 150 MG TAB.ER.24H PO (08:32)
[2024-04-25] MEDS: Atorvastatin Calcium 80 MG TABLET PO (08:32)
[2024-04-25] MEDS: lisinopriL 5 MG TABLET PO (08:32)
[2024-04-25 08:45] LABS: Glucose, Whole Blood 106 mg/dL (60-115)
--- NOTE | 2024-04-25 09:04 | P.PNPSI_ITS ---
Subjective Subjective Date of Service: 04/25/24 Reason For Visit: SI, Unspecified Depressive Disorder Subjective Notes: Conditional Voluntary Interim History: Reviewed with Dr. Obrien. Pt reports waking up this morning feeling anxious; pt stated, I'm feeling a little better than yesterday . Denies SI/HI/VH/AH. Continues to be concerned if he will feel like himself again . Medication Compliance: Yes Side effects from medications: No Attending Groups: Yes Review of Systems Constitutional: Reports as per HPI Eyes: Reports as per HPI Reports as per HPI Cardiovascular: Reports as per HPI Respiratory: Reports as per HPI Gastrointestinal: Reports as per HPI Genitourinary: Reports as per HPI Musculoskeletal: Reports as per HPI Skin/Breast: Reports as per HPI Reports as per HPI Psychiatric: Reports as per HPI Endocrine: Reports as per HPI Hematologic/Lymphatic: Reports as per HPI Allergic/Immunologic: Reports as per HPI Mental Status Exam Mental Status Exam Narrative: Pt is alert and oriented; behavior is cooperative, calm; dressed in casual attire; mood is described as anxious and depressed ; eye contact appropriate; Speech is normal rate, volume and not pressured; thought process is organized and goal directed; Thought content is on tx; denies SI/HI/VH/AH. Diagnostics Vital Signs (24Hr): Vital Signs - 24 hr 04/24/24 20:00 04/25/24 07:37 Temperature 97.8 F 97.3 F Pulse Rate 87 60 Respiratory Rate 16 14 Blood Pressure 134/71 118/61 Pulse Oximetry 95 96 Oxygen Delivery Method Room Air Room Air BMI result Body Mass Index 25.9 Labs 04/22/24 16:54 Labs: Laboratory Results - last 48 hr 04/23/24 04/24/24 04/24/24 17:04 08:05 17:40 POC Glucose 167 H 121 H 216 H 04/25/24 08:34 POC Glucose 106 Medications Medications Current Medications Acetaminophen (Acetaminophen 325 Mg Tablet) 650 mg PO Q6H PRN PRN Reason: Headache/Pain Mild Scale (1-3) Last Admin: 04/22/24 08:27 Dose: 650 mg Al Hydroxide/Mg Hydroxide (Magnesium Hydrox/Alum Hydrox 30 Ml Oral.Susp) 30 ml PO Q6H PRN PRN Reason: Heartburn/Nausea Atorvastatin Calcium (Atorvastatin Calcium 80 Mg Tablet) 80 mg PO DAILY [facility] Last Admin: 04/25/24 08:32 Dose: 80 mg Bupropion HCl (Bupropion Hcl Xl 150 Mg Tab.Er.24h) 150 mg PO DAILY [facility] Last Admin: 04/25/24 08:32 Dose: 150 mg Duloxetine HCl (Duloxetine Hcl 30 Mg Capsule.Dr) 90 mg PO DAILY [facility] Last Admin: 04/25/24 08:31 Dose: 90 mg Ezetimibe (Ezetimibe 10 Mg Tablet) 10 mg PO DAILY [facility] Last Admin: 04/25/24 08:32 Dose: 10 mg Empagliflozin (Empagliflozin 25 Mg Tablet) 25 mg PO DAILY [facility] Last Admin: 04/25/24 08:32 Dose: 25 mg Hydroxyzine HCl (Hydroxyzine Hcl 25 Mg Tablet) 25 mg PO Q6H PRN PRN Reason: Anxiety Insulin Glargine (Insulin Glargine,Hum.Rec.Anlog 100 Unit/Ml 10 Ml Vial) 40 unit SUBCUT BID@0800,1800 [facility] Last Admin: 04/24/24 17:52 Dose: 40 unit Lisinopril (Lisinopril 5 Mg Tablet) 5 mg PO DAILY [facility]; Protocol Last Admin: 04/25/24 08:32 Dose: 5 mg Magnesium Hydroxide (Milk Of Magnesia 30 Ml Oral.Susp) 30 ml PO DAILY PRN PRN Reason: Constipation Metformin HCl (Metformin Hcl 1,000 Mg Tablet) 1,000 mg PO BIDWM [facility] Last Admin: 04/25/24 08:32 Dose: 1,000 mg Metoprolol Succinate (Metoprolol Succinate Er 50 Mg Tab.Er.24h) 50 mg PO DAILY [facility]; Protocol Last Admin: 04/25/24 08:32 Dose: 50 mg Nicotine (Nicotine 21 Mg Patch.Td24) 21 mg TRANSDERMA DAILY PRN PRN Reason: smoking cessation Nicotine Polacrilex (Nicotine Polacrilex 2 Mg Gum) 4 mg BUCCAL Q2H PRN PRN Reason: Nicotine Cravings Non-Formulary Medication (Fenofibrate Micronized) 200 mg PO DAILY [facility] Trazodone HCl (Trazodone Hcl 50 Mg Tablet) 50 mg PO BEDTIME [facility] Last Admin: 04/24/24 21:27 Dose: 50 mg Trazodone HCl (Trazodone Hcl 50 Mg Tablet) 50 mg PO BEDTIME PRN PRN Reason: Insomnia Allergies Allergies Allergy/AdvReac Type Severity Reaction Status Date / Time No Known Allergies Allergy Verified 04/22/24 01:43 Assessment & Plan Assessment & Plan (1) MDD (major depressive disorder), recurrent episode, severe: Status: Acute Code(s): F33.2 - Major depressive disorder, recurrent severe without psychotic features (2) Opioid use disorder, moderate, in early remission: Status: Acute Code(s): F11.21 - Opioid dependence, in remission Plan Mr. Teixeira is a 68 year-old male with hx of MDD, who was brought in by family to [facility] due to increase depression in past week, but depressed for about 2 months. He presents with symptoms of anhedonia, depressed mood, decrease appetite, over sleeping, passive SI. Utox neg at [place] for cocaine, cannabinoids, barbiturates, opioids. No utox completed for synthetic opioids, which is what he usually would misuse and buy on the streets. We discussed risks, benefits and alternative treatment options. He agreed to increase wellbutrin to 150mg po daily and change to extended release formulation. He also agree to increase cymbalta to 90mg po daily. PLAN 04/23- continue tx. 04/24: Pt reports feeling anxious and depressed ; pt stated, I'm worried if I'm going to get better. I'm hoping the increase in medication will help . Pt reports passive SI with no plan. denies HI/VH/AH. He reports attending groups has been helpful. Per nursing, pt slept 8 hours last night. Continue current tx plan. 04/25: continue current tx plan. Patient educated on: diagnosis and medication risk/benefits Reason for continued inpatient stay Substantial Risk for: med/psych decompensation Time Spent With Patient Time: Total time managing care of this patient today _20___ minutes.
[2024-04-25] MEDS: Insulin Glargine,Hum.rec.anlog 100 UNIT/ML 10 ML VIAL 40 UNIT SUBCUT ×2 (09:16→18:08)
[2024-04-25] MEDS: Acetaminophen 325 MG TABLET 650 MG PO (12:10)
[2024-04-25 18:15] LABS: Glucose, Whole Blood 216 mg/dL (60-115)
[2024-04-25 19:57] VITALS: BP 125/65; PULSE 82; RESP 16; TEMP 36.3; O2SAT 98
[2024-04-26 08:14] VITALS: BP 119/66; PULSE 78; RESP 16; TEMP 36.8; O2SAT 96
[2024-04-26 08:20] VITALS: BP 119/66; PULSE 78; RESP 16; TEMP 36.8; O2SAT 96
[2024-04-26 08:47] LABS: Glucose, Whole Blood 104 mg/dL (60-115)
[2024-04-26] MEDS: DULoxetine HCl 30 MG CAPSULE.DR 90 MG PO (08:48)
[2024-04-26] MEDS: Empagliflozin 25 MG TABLET PO (08:48)
[2024-04-26] MEDS: buPROPion HCl XL 150 MG TAB.ER.24H PO (08:48)
[2024-04-26] MEDS: Ezetimibe 10 MG TABLET PO (08:49)
[2024-04-26] MEDS: Metoprolol Succinate ER 50 MG TAB.ER.24H PO (08:49)
[2024-04-26] MEDS: lisinopriL 5 MG TABLET PO (08:49)
[2024-04-26] MEDS: Atorvastatin Calcium 80 MG TABLET PO (08:49)
[2024-04-26] MEDS: metFORMIN HCl 1,000 MG TABLET 1000 MG PO ×2 (09:11→18:04)
[2024-04-26] MEDS: Insulin Glargine,Hum.rec.anlog 100 UNIT/ML 10 ML VIAL 40 UNIT SUBCUT ×2 (09:11→18:04)
--- NOTE | 2024-04-26 09:21 | P.PNPSI_ITS ---
Subjective Subjective Date of Service: 04/26/24 Reason For Visit: SI, Unspecified Depressive Disorder Subjective Notes: Conditional Voluntary Interim History: Patient was seen and discussed in rounds today. Records and plans were reviewed. He is doing better and has been stable and is looking forward to discharge early next week. Eating and sleeping adequately. His POC is have been within range. No complaints or side effects. No changes were made today Review of Systems Review of Systems Yes all other systems are reviewed and are negative Mental Status Exam Mental Status Exam Narrative: In today's visit he is alert, oriented and pleasant. Normal speech. Moderate eye contact. Appropriate affect. No signs of psychosis or delusions. No SI/HI. Cognitively intact. Judgment is intact Diagnostics Vital Signs (24Hr): Vital Signs - 24 hr 04/25/24 19:57 04/26/24 08:14 04/26/24 08:20 Temperature 97.3 F 98.3 F 98.3 F Pulse Rate 82 78 78 Respiratory Rate 16 16 16 Blood Pressure 125/65 119/66 119/66 Pulse Oximetry 98 96 96 Oxygen Delivery Method Room Air Room Air Room Air BMI result Body Mass Index 25.9 Labs 04/22/24 16:54 Labs: Laboratory Results - last 48 hr 04/24/24 04/25/24 04/25/24 17:40 08:34 18:07 POC Glucose 216 H 106 216 H 04/26/24 08:42 POC Glucose 104 Medications Medications Current Medications Acetaminophen (Acetaminophen 325 Mg Tablet) 650 mg PO Q6H PRN PRN Reason: Headache/Pain Mild Scale (1-3) Last Admin: 04/25/24 12:10 Dose: 650 mg Al Hydroxide/Mg Hydroxide (Magnesium Hydrox/Alum Hydrox 30 Ml Oral.Susp) 30 ml PO Q6H PRN PRN Reason: Heartburn/Nausea Atorvastatin Calcium (Atorvastatin Calcium 80 Mg Tablet) 80 mg PO DAILY [facility] Last Admin: 04/26/24 08:49 Dose: 80 mg Bupropion HCl (Bupropion Hcl Xl 150 Mg Tab.Er.24h) 150 mg PO DAILY [facility] Last Admin: 04/26/24 08:48 Dose: 150 mg Duloxetine HCl (Duloxetine Hcl 30 Mg Capsule.Dr) 90 mg PO DAILY [facility] Last Admin: 04/26/24 08:48 Dose: 90 mg Ezetimibe (Ezetimibe 10 Mg Tablet) 10 mg PO DAILY [facility] Last Admin: 04/26/24 08:49 Dose: 10 mg Empagliflozin (Empagliflozin 25 Mg Tablet) 25 mg PO DAILY [facility] Last Admin: 04/26/24 08:48 Dose: 25 mg Hydroxyzine HCl (Hydroxyzine Hcl 25 Mg Tablet) 25 mg PO Q6H PRN PRN Reason: Anxiety Insulin Glargine (Insulin Glargine,Hum.Rec.Anlog 100 Unit/Ml 10 Ml Vial) 40 unit SUBCUT BID@0800,1800 [facility] Last Admin: 04/26/24 09:11 Dose: 40 unit Lisinopril (Lisinopril 5 Mg Tablet) 5 mg PO DAILY [facility]; Protocol Last Admin: 04/26/24 08:49 Dose: 5 mg Magnesium Hydroxide (Milk Of Magnesia 30 Ml Oral.Susp) 30 ml PO DAILY PRN PRN Reason: Constipation Metformin HCl (Metformin Hcl 1,000 Mg Tablet) 1,000 mg PO BIDWM [facility] Last Admin: 04/26/24 09:11 Dose: 1,000 mg Metoprolol Succinate (Metoprolol Succinate Er 50 Mg Tab.Er.24h) 50 mg PO DAILY [facility]; Protocol Last Admin: 04/26/24 08:49 Dose: 50 mg Nicotine (Nicotine 21 Mg Patch.Td24) 21 mg TRANSDERMA DAILY PRN PRN Reason: smoking cessation Nicotine Polacrilex (Nicotine Polacrilex 2 Mg Gum) 4 mg BUCCAL Q2H PRN PRN Reason: Nicotine Cravings Non-Formulary Medication (Fenofibrate Micronized) 200 mg PO DAILY [facility] Trazodone HCl (Trazodone Hcl 50 Mg Tablet) 50 mg PO BEDTIME [facility] Last Admin: 04/25/24 22:50 Dose: Not Given Trazodone HCl (Trazodone Hcl 50 Mg Tablet) 50 mg PO BEDTIME PRN PRN Reason: Insomnia Allergies Allergies Allergy/AdvReac Type Severity Reaction Status Date / Time No Known Allergies Allergy Verified 04/22/24 01:43 Assessment & Plan Assessment & Plan (1) MDD (major depressive disorder), recurrent episode, severe: Status: Acute Code(s): F33.2 - Major depressive disorder, recurrent severe without psychotic features (2) Opioid use disorder, moderate, in early remission: Status: Acute Code(s): F11.21 - Opioid dependence, in remission Plan Mr. Teixeira is a 68 year-old male with hx of MDD, who was brought in by family to [facility] due to increase depression in past week, but depressed for about 2 months. He presents with symptoms of anhedonia, depressed mood, decrease appetite, over sleeping, passive SI. Utox neg at [place] for cocaine, cannabinoids, barbiturates, opioids. No utox completed for synthetic opioids, which is what he usually would misuse and buy on the streets. We discussed risks, benefits and alternative treatment options. He agreed to increase wellbutrin to 150mg po daily and change to extended release formulation. He also agree to increase cymbalta to 90mg po daily. PLAN 04/23- continue tx. 04/24: Pt reports feeling anxious and depressed ; pt stated, I'm worried if I'm going to get better. I'm hoping the increase in medication will help . Pt reports passive SI with no plan. denies HI/VH/AH. He reports attending groups has been helpful. Per nursing, pt slept 8 hours last night. Continue current tx plan. 04/25: continue current tx plan. 04/26: Continue current regimen and plans Reason for continued inpatient stay Substantial Risk for: med/psych decompensation Time Spent With Patient Time: Total time managing care of this patient today ____ minutes.
[2024-04-26 17:49] LABS: Glucose, Whole Blood 161 mg/dL (60-115)
[2024-04-26 20:00] VITALS: BP 122/63; PULSE 81; RESP 16; TEMP 36.6; O2SAT 98
[2024-04-26] MEDS: traZODone HCL 50 MG TABLET PO (21:21)
[2024-04-27 07:59] VITALS: BP 110/60; PULSE 69; RESP 16; TEMP 36.3; O2SAT 97
[2024-04-27 08:45] LABS: Glucose, Whole Blood 91 mg/dL (60-115)
[2024-04-27] MEDS: DULoxetine HCl 30 MG CAPSULE.DR 90 MG PO (09:10)
[2024-04-27] MEDS: Atorvastatin Calcium 80 MG TABLET PO (09:10)
[2024-04-27 09:11] VITALS: BP 110/60; PULSE 69
[2024-04-27] MEDS: lisinopriL 5 MG TABLET PO (09:11)
[2024-04-27] MEDS: Empagliflozin 25 MG TABLET PO (09:11)
[2024-04-27] MEDS: buPROPion HCl XL 150 MG TAB.ER.24H PO (09:11)
[2024-04-27] MEDS: metFORMIN HCl 1,000 MG TABLET 1000 MG PO ×2 (09:11→16:48)
[2024-04-27] MEDS: Metoprolol Succinate ER 50 MG TAB.ER.24H PO (09:11)
[2024-04-27] MEDS: Ezetimibe 10 MG TABLET PO (09:11)
[2024-04-27] MEDS: Insulin Glargine,Hum.rec.anlog 100 UNIT/ML 10 ML VIAL 40 UNIT SUBCUT ×2 (09:12→18:19)
--- NOTE | 2024-04-27 09:49 | P.PNPSI_ITS ---
Subjective Subjective Date of Service: 04/27/24 Reason For Visit: SI, Unspecified Depressive Disorder Subjective Notes: Conditional Voluntary Interim History: Patient was seen and discussed in rounds today. Records and plans were reviewed. He continues to be mostly flat and some brief social encounters have been observed. He has not been using the trazodone and we are going to change it to p.r.n. use. Eating and sleeping adequately. No behavioral problems. No other changes were made. Review of Systems Review of Systems Yes all other systems are reviewed and are negative Mental Status Exam Mental Status Exam Narrative: In today's visit he is alert, oriented and pleasant. Normal speech. Moderate eye contact. Appropriate affect. No signs of psychosis or delusions. No SI/HI. Cognitively intact. Judgment is intact Diagnostics Vital Signs (24Hr): Vital Signs - 24 hr 04/26/24 20:00 04/27/24 07:59 04/27/24 09:11 Temperature 97.9 F 97.3 F Pulse Rate 81 69 Respiratory Rate 16 16 Blood Pressure 122/63 110/60 110/60 Pulse Oximetry 98 97 Oxygen Delivery Method Room Air Room Air 04/27/24 09:11 Temperature Pulse Rate 69 Respiratory Rate Blood Pressure 110/60 Pulse Oximetry Oxygen Delivery Method BMI result Body Mass Index 25.9 Labs 04/22/24 16:54 Labs: Laboratory Results - last 48 hr 04/25/24 04/26/24 04/26/24 18:07 08:42 17:39 POC Glucose 216 H 104 161 H 04/27/24 08:39 POC Glucose 91 Medications Medications Current Medications Acetaminophen (Acetaminophen 325 Mg Tablet) 650 mg PO Q6H PRN PRN Reason: Headache/Pain Mild Scale (1-3) Last Admin: 04/25/24 12:10 Dose: 650 mg Al Hydroxide/Mg Hydroxide (Magnesium Hydrox/Alum Hydrox 30 Ml Oral.Susp) 30 ml PO Q6H PRN PRN Reason: Heartburn/Nausea Atorvastatin Calcium (Atorvastatin Calcium 80 Mg Tablet) 80 mg PO DAILY [facility] Last Admin: 04/27/24 09:10 Dose: 80 mg Bupropion HCl (Bupropion Hcl Xl 150 Mg Tab.Er.24h) 150 mg PO DAILY [facility] Last Admin: 04/27/24 09:11 Dose: 150 mg Duloxetine HCl (Duloxetine Hcl 30 Mg Capsule.Dr) 90 mg PO DAILY [facility] Last Admin: 04/27/24 09:10 Dose: 90 mg Ezetimibe (Ezetimibe 10 Mg Tablet) 10 mg PO DAILY [facility] Last Admin: 04/27/24 09:11 Dose: 10 mg Empagliflozin (Empagliflozin 25 Mg Tablet) 25 mg PO DAILY [facility] Last Admin: 04/27/24 09:11 Dose: 25 mg Hydroxyzine HCl (Hydroxyzine Hcl 25 Mg Tablet) 25 mg PO Q6H PRN PRN Reason: Anxiety Insulin Glargine (Insulin Glargine,Hum.Rec.Anlog 100 Unit/Ml 10 Ml Vial) 40 unit SUBCUT BID@0800,1800 [facility] Last Admin: 04/27/24 09:12 Dose: 40 unit Lisinopril (Lisinopril 5 Mg Tablet) 5 mg PO DAILY [facility]; Protocol Last Admin: 04/27/24 09:11 Dose: 5 mg Magnesium Hydroxide (Milk Of Magnesia 30 Ml Oral.Susp) 30 ml PO DAILY PRN PRN Reason: Constipation Metformin HCl (Metformin Hcl 1,000 Mg Tablet) 1,000 mg PO BIDWM [facility] Last Admin: 04/27/24 09:11 Dose: 1,000 mg Metoprolol Succinate (Metoprolol Succinate Er 50 Mg Tab.Er.24h) 50 mg PO DAILY [facility]; Protocol Last Admin: 04/27/24 09:11 Dose: 50 mg Nicotine (Nicotine 21 Mg Patch.Td24) 21 mg TRANSDERMA DAILY PRN PRN Reason: smoking cessation Nicotine Polacrilex (Nicotine Polacrilex 2 Mg Gum) 4 mg BUCCAL Q2H PRN PRN Reason: Nicotine Cravings Pt Own Med ( Fenofibrate Micronized 200 Mg Capsule) 200 mg PO DAILY [facility] Last Admin: 04/27/24 09:12 Dose: 200 mg Trazodone HCl (Trazodone Hcl 50 Mg Tablet) 50 mg PO BEDTIME [facility] Last Admin: 04/26/24 21:21 Dose: 50 mg Trazodone HCl (Trazodone Hcl 50 Mg Tablet) 50 mg PO BEDTIME PRN PRN Reason: Insomnia Allergies Allergies Allergy/AdvReac Type Severity Reaction Status Date / Time No Known Allergies Allergy Verified 04/22/24 01:43 Assessment & Plan Assessment & Plan (1) MDD (major depressive disorder), recurrent episode, severe: Status: Acute Code(s): F33.2 - Major depressive disorder, recurrent severe without psychotic features (2) Opioid use disorder, moderate, in early remission: Status: Acute Code(s): F11.21 - Opioid dependence, in remission Plan Mr. Teixeira is a 68 year-old male with hx of MDD, who was brought in by family to [facility] due to increase depression in past week, but depressed for about 2 months. He presents with symptoms of anhedonia, depressed mood, decrease appetite, over sleeping, passive SI. Utox neg at [place] for cocaine, cannabinoids, barbiturates, opioids. No utox completed for synthetic opioids, which is what he usually would misuse and buy on the streets. We discussed risks, benefits and alternative treatment options. He agreed to increase wellbutrin to 150mg po daily and change to extended release formulation. He also agree to increase cymbalta to 90mg po daily. PLAN 04/23- continue tx. 04/24: Pt reports feeling anxious and depressed ; pt stated, I'm worried if I'm going to get better. I'm hoping the increase in medication will help . Pt reports passive SI with no plan. denies HI/VH/AH. He reports attending groups has been helpful. Per nursing, pt slept 8 hours last night. Continue current tx plan. 04/25: continue current tx plan. 04/26: Continue current regimen and plans 04/27: Continue current regimen and plans Patient educated on: medication risk/benefits Reason for continued inpatient stay Substantial Risk for: med/psych decompensation Time Spent With Patient Time: Total time managing care of this patient today ____ minutes.
[2024-04-27] MEDS: Acetaminophen 325 MG TABLET 650 MG PO (12:18)
[2024-04-27 12:52] LABS: Glucose, Whole Blood 254 mg/dL (60-115)
[2024-04-27] MEDS: Magnesium Hydrox/Alum Hydrox 30 ML ORAL.SUSP PO (17:00)
[2024-04-27 17:01] LABS: Glucose, Whole Blood 239 mg/dL (60-115)
[2024-04-27 19:45] VITALS: BP 101/60; PULSE 86; RESP 16; TEMP 37.3; O2SAT 95
[2024-04-27] MEDS: traZODone HCL 50 MG TABLET PO (21:24)
[2024-04-28 07:35] VITALS: BP 118/68; PULSE 72; RESP 16; TEMP 36.4; O2SAT 99
[2024-04-28 08:20] VITALS: BP 118/68; PULSE 72; RESP 16; TEMP 36.6; O2SAT 99
[2024-04-28] MEDS: Metoprolol Succinate ER 50 MG TAB.ER.24H PO (08:22)
[2024-04-28] MEDS: Ezetimibe 10 MG TABLET PO (08:22)
[2024-04-28] MEDS: DULoxetine HCl 30 MG CAPSULE.DR 90 MG PO (08:22)
[2024-04-28] MEDS: Empagliflozin 25 MG TABLET PO (08:22)
[2024-04-28] MEDS: buPROPion HCl XL 150 MG TAB.ER.24H PO (08:22)
[2024-04-28] MEDS: lisinopriL 5 MG TABLET PO (08:23)
[2024-04-28] MEDS: Atorvastatin Calcium 80 MG TABLET PO (08:23)
[2024-04-28] MEDS: metFORMIN HCl 1,000 MG TABLET 1000 MG PO ×2 (08:23→18:10)
[2024-04-28 08:48] LABS: Glucose, Whole Blood 63 mg/dL (60-115)
--- NOTE | 2024-04-28 08:52 | P.PNPSI_ITS ---
Subjective Subjective Date of Service: 04/28/24 Reason For Visit: SI, Unspecified Depressive Disorder Subjective Notes: Conditional Voluntary Interim History: Reviewed with Dr. Obrien. Active on unit, social with peers. attending groups. Pt reports feeling better than when I came in here . Pt reports he plans on following up with outpatient providers. denies SI/HI/VH/AH. Plan to discharge home tomorrow. Medication Compliance: Yes Side effects from medications: No Attending Groups: Yes Review of Systems Constitutional: Reports as per HPI Eyes: Reports as per HPI Reports as per HPI Cardiovascular: Reports as per HPI Respiratory: Reports as per HPI Gastrointestinal: Reports as per HPI Genitourinary: Reports as per HPI Musculoskeletal: Reports as per HPI Skin/Breast: Reports as per HPI Reports as per HPI Psychiatric: Reports as per HPI Endocrine: Reports as per HPI Hematologic/Lymphatic: Reports as per HPI Allergic/Immunologic: Reports as per HPI Mental Status Exam Mental Status Exam Narrative: Pt is alert and oriented; behavior is cooperative and calm; dressed in casual attire; mood is described as good ; eye contact appropriate; Speech is normal rate, volume and not pressured; thought process is organized and goal directed; Thought content is on tx; denies SI/HI/VH/AH. Diagnostics Vital Signs (24Hr): Vital Signs - 24 hr 04/27/24 09:11 04/27/24 09:11 04/27/24 19:45 Temperature 99.2 F Pulse Rate 69 86 Respiratory Rate 16 Blood Pressure 110/60 110/60 101/60 Pulse Oximetry 95 Oxygen Delivery Method Room Air 04/28/24 07:35 Temperature 97.5 F Pulse Rate 72 Respiratory Rate 16 Blood Pressure 118/68 Pulse Oximetry 99 Oxygen Delivery Method Room Air BMI result Body Mass Index 25.9 Labs 04/28/24 08:47 Labs: Laboratory Results - last 48 hr 04/26/24 04/27/24 04/27/24 17:39 08:39 12:43 POC Glucose 161 H 91 254 H 04/27/24 04/28/24 16:56 08:40 POC Glucose 239 H 63 Medications Medications Current Medications Acetaminophen (Acetaminophen 325 Mg Tablet) 650 mg PO Q6H PRN PRN Reason: Headache/Pain Mild Scale (1-3) Last Admin: 04/27/24 12:18 Dose: 650 mg Al Hydroxide/Mg Hydroxide (Magnesium Hydrox/Alum Hydrox 30 Ml Oral.Susp) 30 ml PO Q6H PRN PRN Reason: Heartburn/Nausea Last Admin: 04/27/24 17:00 Dose: 30 ml Atorvastatin Calcium (Atorvastatin Calcium 80 Mg Tablet) 80 mg PO DAILY [facility] Last Admin: 04/28/24 08:23 Dose: 80 mg Bupropion HCl (Bupropion Hcl Xl 150 Mg Tab.Er.24h) 150 mg PO DAILY [facility] Last Admin: 04/28/24 08:22 Dose: 150 mg Duloxetine HCl (Duloxetine Hcl 30 Mg Capsule.Dr) 90 mg PO DAILY [facility] Last Admin: 04/28/24 08:22 Dose: 90 mg Ezetimibe (Ezetimibe 10 Mg Tablet) 10 mg PO DAILY [facility] Last Admin: 04/28/24 08:22 Dose: 10 mg Empagliflozin (Empagliflozin 25 Mg Tablet) 25 mg PO DAILY [facility] Last Admin: 04/28/24 08:22 Dose: 25 mg Hydroxyzine HCl (Hydroxyzine Hcl 25 Mg Tablet) 25 mg PO Q6H PRN PRN Reason: Anxiety Insulin Glargine (Insulin Glargine,Hum.Rec.Anlog 100 Unit/Ml 10 Ml Vial) 40 unit SUBCUT BID@0800,1800 [facility] Last Admin: 04/27/24 18:19 Dose: 40 unit Lisinopril (Lisinopril 5 Mg Tablet) 5 mg PO DAILY [facility]; Protocol Last Admin: 04/28/24 08:23 Dose: 5 mg Magnesium Hydroxide (Milk Of Magnesia 30 Ml Oral.Susp) 30 ml PO DAILY PRN PRN Reason: Constipation Metformin HCl (Metformin Hcl 1,000 Mg Tablet) 1,000 mg PO BIDWM [facility] Last Admin: 04/28/24 08:23 Dose: 1,000 mg Metoprolol Succinate (Metoprolol Succinate Er 50 Mg Tab.Er.24h) 50 mg PO DAILY [facility]; Protocol Last Admin: 04/28/24 08:22 Dose: 50 mg Nicotine (Nicotine 21 Mg Patch.Td24) 21 mg TRANSDERMA DAILY PRN PRN Reason: smoking cessation Nicotine Polacrilex (Nicotine Polacrilex 2 Mg Gum) 4 mg BUCCAL Q2H PRN PRN Reason: Nicotine Cravings Pt Own Med ( Fenofibrate Micronized 200 Mg Capsule) 200 mg PO DAILY [facility] Last Admin: 04/28/24 08:22 Dose: 200 mg Trazodone HCl (Trazodone Hcl 50 Mg Tablet) 50 mg PO BEDTIME PRN PRN Reason: Insomnia Last Admin: 04/27/24 21:24 Dose: 50 mg Allergies Allergies Allergy/AdvReac Type Severity Reaction Status Date / Time No Known Allergies Allergy Verified 04/22/24 01:43 Assessment & Plan Assessment & Plan (1) MDD (major depressive disorder), recurrent episode, severe: Status: Acute Code(s): F33.2 - Major depressive disorder, recurrent severe without psychotic features (2) Opioid use disorder, moderate, in early remission: Status: Acute Code(s): F11.21 - Opioid dependence, in remission Plan Mr. Teixeira is a 68 year-old male with hx of MDD, who was brought in by family to [facility] due to increase depression in past week, but depressed for about 2 months. He presents with symptoms of anhedonia, depressed mood, decrease appetite, over sleeping, passive SI. Utox neg at [place] for cocaine, cannabinoids, barbiturates, opioids. No utox completed for synthetic opioids, which is what he usually would misuse and buy on the streets. We discussed risks, benefits and alternative treatment options. He agreed to increase wellbutrin to 150mg po daily and change to extended release formulation. He also agree to increase cymbalta to 90mg po daily. PLAN 04/23- continue tx. 04/24: Pt reports feeling anxious and depressed ; pt stated, I'm worried if I'm going to get better. I'm hoping the increase in medication will help . Pt reports passive SI with no plan. denies HI/VH/AH. He reports attending groups has been helpful. Per nursing, pt slept 8 hours last night. Continue current tx plan. 04/25: continue current tx plan. 04/26: Continue current regimen and plans 04/27: Continue current regimen and plans 04/28: Active on unit, social with peers. attending groups. Pt reports feeling better than when I came in here . Pt reports he plans on following up with outpatient providers. denies SI/HI/VH/AH. Plan to discharge home tomorrow. Patient educated on: diagnosis, medication risk/benefits and therapeutic strategies Reason for continued inpatient stay Substantial Risk for: stable for discharge Time Spent With Patient Time: Total time managing care of this patient today _20___ minutes.
[2024-04-28] MEDS: Insulin Glargine,Hum.rec.anlog 100 UNIT/ML 10 ML VIAL 40 UNIT SUBCUT ×2 (09:04→18:10)
[2024-04-28 09:06] LABS: Estimated Glomerular Filt Rate > 60
[2024-04-28 17:26] LABS: Glucose, Whole Blood 137 mg/dL (60-115)
[2024-04-28 19:42] VITALS: BP 115/64; PULSE 83; RESP 16; TEMP 36.5; O2SAT 97
[2024-04-28] MEDS: traZODone HCL 50 MG TABLET PO (20:06)
[2024-04-29 07:54] VITALS: BP 118/64; PULSE 74; RESP 16; TEMP 36.3; O2SAT 98
[2024-04-29 08:40] LABS: Glucose, Whole Blood 82 mg/dL (60-115)
--- NOTE | 2024-04-29 08:57 | PM.PSYDC ---
DS: Providers Provider Date of Service: 04/29/24 Date of admission: 04/22/24 01:04 Date of discharge: 04/29/24 Primary care physician: Unknown Physician Admitting clinician: Zara Mcghee Attending physician on admission: Tj Obrien Consults: 04/22/24 01:53 Consult to Hospitalist Routine Comment: Consulting Provider: Hospitalist Reason For Exam: admission physical Attending physician on discharge: Tj Obrien Discharging clinician: Alie Cordon DS: Diagnosis Discharge Diagnosis (1) MDD (major depressive disorder), recurrent episode, severe: Status: Acute (2) Opioid use disorder, moderate, in early remission: Status: Acute DS: Medications Discharge Medications Home Medications: Home Medications ?Medication ?Instructions ?Recorded ?Confirmed empagliflozin 25 mg tablet 25 mg PO DAILY 04/22/24 04/22/24 (Jardiance) ezetimibe 10 mg tablet 10 mg PO DAILY 04/22/24 04/22/24 fenofibrate micronized 200 mg 200 mg PO DAILY 04/22/24 04/22/24 capsule insulin glargine 100 unit/mL 40 unit subcut BID 04/22/24 04/22/24 subcutaneous solution (Lantus U-100 Insulin) lisinopril 5 mg tablet 5 mg PO DAILY 04/22/24 04/22/24 metformin 1,000 mg tablet 1,000 mg PO BID 04/22/24 04/22/24 metoprolol succinate 50 mg 50 mg PO DAILY 04/22/24 04/22/24 tablet,extended release 24 hr rosuvastatin 20 mg tablet 20 mg PO BEDTIME 04/22/24 04/22/24 trazodone 50 mg tablet 50 mg PO BEDTIME 04/22/24 04/22/24 Previous Rx's ?Medication ?Instructions ?Recorded bupropion HCl 150 mg 24 hr tablet, 150 mg PO DAILY 30 days #30 tabs 04/28/24 extended release duloxetine 30 mg capsule,delayed 90 mg (3 x 30 mg) PO DAILY 30 days 04/28/24 release #90 caps Mental Status Exam Mental Status Exam Narrative: Pt is alert and oriented; behavior is cooperative and calm; dressed in casual attire; mood is described as good ; eye contact appropriate; Speech is normal rate, volume and not pressured; thought process is organized and goal directed; Thought content is on tx; denies SI/HI/VH/AH. Data Data Completed and Pending Completed studies during hospitalization [Text1]: 04/22/24 04/22/24 04/22/24 08:45 14:07 16:54 VBG pH VBG pCO2 VBG pO2 VBG HCO3 VBG O2 Saturation VBG Base Excess Sodium 138 138 Potassium 4.3 4.7 Chloride 100 101 Carbon Dioxide 26 25 Anion Gap 16 17 BUN 21 H 25 H Creatinine 1.20 1.35 Estim Creat Clear Calc 59.3 52.7 Estimated GFR > 60 53 POC Glucose Random Glucose 193 H Fasting Glucose 155 H Estimat Average Glucose 140 Hemoglobin A1c % 6.5 H Calcium 10.1 10.8 H D Total Bilirubin 0.5 AST 24 ALT 19 Alkaline Phosphatase 51 Total Protein 8.1 H Albumin 4.6 Triglycerides 186 H Cholesterol 134 LDL Cholesterol, Calc 64 HDL Cholesterol 33 L Vitamin B12 369 Folate 12.2 Beta-Hydroxybutyrate 0.16 TSH 1.56 04/22/24 04/22/24 04/23/24 17:06 18:00 08:31 VBG pH 7.39 VBG pCO2 41 VBG pO2 36 VBG HCO3 25 VBG O2 Saturation 59.0 VBG Base Excess 0.4 Sodium Potassium Chloride Carbon Dioxide Anion Gap BUN Creatinine Estim Creat Clear Calc Estimated GFR POC Glucose 181 H 123 H Random Glucose Fasting Glucose Estimat Average Glucose Hemoglobin A1c % Calcium Total Bilirubin AST ALT Alkaline Phosphatase Total Protein Albumin Triglycerides Cholesterol LDL Cholesterol, Calc HDL Cholesterol Vitamin B12 Folate Beta-Hydroxybutyrate TSH 04/23/24 04/24/24 04/24/24 17:04 08:05 17:40 VBG pH VBG pCO2 VBG pO2 VBG HCO3 VBG O2 Saturation VBG Base Excess Sodium Potassium Chloride Carbon Dioxide Anion Gap BUN Creatinine Estim Creat Clear Calc Estimated GFR POC Glucose 167 H 121 H 216 H Random Glucose Fasting Glucose Estimat Average Glucose Hemoglobin A1c % Calcium Total Bilirubin AST ALT Alkaline Phosphatase Total Protein Albumin Triglycerides Cholesterol LDL Cholesterol, Calc HDL Cholesterol Vitamin B12 Folate Beta-Hydroxybutyrate TSH 04/25/24 04/25/24 04/26/24 08:34 18:07 08:42 VBG pH VBG pCO2 VBG pO2 VBG HCO3 VBG O2 Saturation VBG Base Excess Sodium Potassium Chloride Carbon Dioxide Anion Gap BUN Creatinine Estim Creat Clear Calc Estimated GFR POC Glucose 106 216 H 104 Random Glucose Fasting Glucose Estimat Average Glucose Hemoglobin A1c % Calcium Total Bilirubin AST ALT Alkaline Phosphatase Total Protein Albumin Triglycerides Cholesterol LDL Cholesterol, Calc HDL Cholesterol Vitamin B12 Folate Beta-Hydroxybutyrate TSH 04/26/24 04/27/24 04/27/24 17:39 08:39 12:43 VBG pH VBG pCO2 VBG pO2 VBG HCO3 VBG O2 Saturation VBG Base Excess Sodium Potassium Chloride Carbon Dioxide Anion Gap BUN Creatinine Estim Creat Clear Calc Estimated GFR POC Glucose 161 H 91 254 H Random Glucose Fasting Glucose Estimat Average Glucose Hemoglobin A1c % Calcium Total Bilirubin AST ALT Alkaline Phosphatase Total Protein Albumin Triglycerides Cholesterol LDL Cholesterol, Calc HDL Cholesterol Vitamin B12 Folate Beta-Hydroxybutyrate TSH 04/27/24 04/28/24 04/28/24 16:56 08:40 08:47 VBG pH VBG pCO2 VBG pO2 VBG HCO3 VBG O2 Saturation VBG Base Excess Sodium Potassium Chloride Carbon Dioxide Anion Gap BUN Creatinine 1.15 Estim Creat Clear Calc 57.0 Estimated GFR > 60 POC Glucose 239 H 63 Random Glucose Fasting Glucose Estimat Average Glucose Hemoglobin A1c % Calcium Total Bilirubin AST ALT Alkaline Phosphatase Total Protein Albumin Triglycerides Cholesterol LDL Cholesterol, Calc HDL Cholesterol Vitamin B12 Folate Beta-Hydroxybutyrate TSH 04/28/24 04/29/24 17:17 08:33 VBG pH VBG pCO2 VBG pO2 VBG HCO3 VBG O2 Saturation VBG Base Excess Sodium Potassium Chloride Carbon Dioxide Anion Gap BUN Creatinine Estim Creat Clear Calc Estimated GFR POC Glucose 137 H 82 Random Glucose Fasting Glucose Estimat Average Glucose Hemoglobin A1c % Calcium Total Bilirubin AST ALT Alkaline Phosphatase Total Protein Albumin Triglycerides Cholesterol LDL Cholesterol, Calc HDL Cholesterol Vitamin B12 Folate Beta-Hydroxybutyrate TSH DS: Summary Hospital Course Hospital Course: Mr. Teixeira is a 68 year-old male with hx of opioid use disorder in early remission per pt, depression who was brought by family to [facility] due to worsening of depression, not eating, no motivation, oversleeping. He reported passive suicidal thoughts. Utox was negative for barbiturate, cocaine, cannabinoids and opioids. Not tested for synthetic options, which pt reports hx of abuse. On the unit, pt presents as withdrawn, some delayed in responses, he reports depressed mood for the past 2 months. He reports in past week increase in symptoms of depression. He endorses anhedonia, over sleeping, no appetite, depressed mood. He denies any plan or intent to harm himself but does report thinking about dying and thoughts that life is not worth living. He reports hx of 10 years of buying percocet on the streets. He is unable to tell this gag writer amount, other than it depended on whether he had money or not and reports it was not daily. He denies recent use of opioids. However, per [facility] documentation, his suspects that he may have relapsed on opioids. Utox for synthetic opioids not completed at [facility]. He denies hx of VH/AH. He denies hx of suicide attempts. He denies periods of increase energy, grandiose delusions. No prior psychiatric admissions. Mr. Teixeira is a 68 year-old male with hx of MDD, who was brought in by family to [facility] due to increase depression in past week, but depressed for about 2 months. He presents with symptoms of anhedonia, depressed mood, decrease appetite, over sleeping, passive SI. Utox neg at [facility] for cocaine, cannabinoids, barbiturates, opioids. No utox completed for synthetic opioids, which is what he usually would misuse and buy on the streets. We discussed risks, benefits and alternative treatment options. He agreed to increase wellbutrin to 150mg po daily and change to extended release formulation. He also agree to increase cymbalta to 90mg po daily. PLAN 1. Admit to [facility], CV, 15 minutes checks for safety. 2. increase wellbutrin and change to extended formulation to 150mg po daily. Increase cymbalta to 90mg po daily. 3. obtain collateral information 4. aftercare planning. Pt reports feeling anxious and depressed ; pt stated, I'm worried if I'm going to get better. I'm hoping the increase in medication will help . Pt reports passive SI with no plan. denies HI/VH/AH. He reports attending groups has been helpful. Per nursing, pt slept 8 hours last night. Continue current tx plan. Active on unit, social with peers. attending groups. Pt reports feeling better than when I came in here . Pt reports he plans on following up with outpatient providers. denies SI/HI/VH/AH. Plan to discharge home tomorrow. Pt reports feeling good and ready to go home . Pt reprots he plans on following up with outpatient providers. denies SI/HI/VH/AH. Time spent discussing smoking cessation with patient: 3 to 10 minutes Status at Discharge Cognitive/behavioral status at discharge: Patient was interviewed prior to discharge and found to be fully oriented and without SI or HI. Patient has insight and demonstrates good judgment in terms of wanting to pursue treatment. Patient has a safety plan that includes presenting to the closest ER or calling 911 if feeling unsafe. Functional status at discharge: independent ambulation Overall status at discharge: patient is back to baseline Time Spent with Patient Time attestation: Total time managing care of this patient today _20___ minutes. Time spent: Less than 30 minutes Discharge Plan Discharge Anticipated Discharge Date/Time: 04/29/24 11:00 Patient Disposition: Home, Self-Care Discharge Diagnosis: MDD, Opioid use d/o Referrals: Brittany Pierson (Therapy) [Other] - 05/05/24 10:00 am (IN OFFICE APPOINTMENT) Bijan Bishop (Psychiatry) [Other] - 05/29/24 1:00 pm (IN OFFICE APPOINTMENT) Girma Sutton MD [Physician] - 05/06/24 2:15 pm (your follow up appt has been scheduled for Sunday05/06/24 @ 2:15pm.) Discharge Medications: New duloxetine 30 mg Capsule,Delayed Release(Dr/Ec) 90 mg PO DAILY 30 Days Qty: 90 0RF bupropion HCl 150 mg Tablet Extended Release 24 Hr 150 mg PO DAILY 30 Days Qty: 30 0RF Continued trazodone 50 mg tablet 50 mg PO BEDTIME metoprolol succinate 50 mg tablet extended release 24 hr 50 mg PO DAILY fenofibrate micronized 200 mg capsule 200 mg PO DAILY metformin 1,000 mg tablet 1,000 mg PO BID lisinopril 5 mg tablet 5 mg PO DAILY ezetimibe 10 mg tablet 10 mg PO DAILY rosuvastatin 20 mg tablet 20 mg PO BEDTIME Jardiance 25 mg tablet 25 mg PO DAILY insulin glargine [Lantus U-100 Insulin] 100 unit/mL Solution 40 unit SUBCUT BID Discontinued bupropion HCl 75 mg tablet 75 mg PO QAM duloxetine 60 mg capsule,delayed release(DR/EC) 60 mg PO DAILY Discharge Orders: Discharge Order (Routine); Ordered 04/29/24 Ordered By: Alie Cordon Diet: Regular diet Activity on Discharge: As tolerated Stand Alone Forms: Patient Portal Discharge page, Community Support Print Language: Maltese Care Plan Goals: Maintain mood and safe behaviors Take medications as prescribed Continue to pursue sobriety Practice coping skills Continue with outpatient providers and reach out to them as needed Health Concerns: Mood stability and behaviors Sobriety Plan of Treatment: Follow up with your PCP, psychiatric provider and other outpatient providers regarding above concerns Take medications as prescribed Assessment: Patient was interviewed prior to discharge and found to be fully oriented and without SI or HI. Patient has insight and demonstrates good judgment in terms of wanting to pursue treatment. Patient has a safety plan that includes presenting to the closest ER or calling 911 if feeling unsafe. Discharge Date/Time: 04/29/24 10:50
[2024-04-29 09:04] VITALS: BP 118/64
[2024-04-29] MEDS: Atorvastatin Calcium 80 MG TABLET PO (09:04)
[2024-04-29] MEDS: Ezetimibe 10 MG TABLET PO (09:04)
[2024-04-29] MEDS: lisinopriL 5 MG TABLET PO (09:04)
[2024-04-29 09:05] VITALS: BP 118/64; PULSE 74
[2024-04-29] MEDS: DULoxetine HCl 30 MG CAPSULE.DR 90 MG PO (09:05)
[2024-04-29] MEDS: buPROPion HCl XL 150 MG TAB.ER.24H PO (09:05)
[2024-04-29] MEDS: Metoprolol Succinate ER 50 MG TAB.ER.24H PO (09:05)
[2024-04-29] MEDS: Empagliflozin 25 MG TABLET PO (09:05)
[2024-04-29] MEDS: metFORMIN HCl 1,000 MG TABLET 1000 MG PO (09:09)
[2024-04-29] MEDS: Insulin Glargine,Hum.rec.anlog 100 UNIT/ML 10 ML VIAL 40 UNIT SUBCUT (09:20)
[2024-04-29] MEDS: Naloxone HCl Nasal TAKE HOME 4 MG SPRAY 8 MG NOSTRILALT (10:11)
== END 2024-04-29 10:50 | disposition home or self-care (01) | DRG 751 ==
PROVIDERS: Physician Assistant; Social Worker; Student in an Organized Health Care Education/Training Program; Admitting Provider Psychiatry & Neurology Psychiatry; Responsible Provider Registered Nurse; Visit Provider Psychiatry & Neurology Psychiatry
DX: F33.2 Major depressive disorder, recurrent severe without psychotic features (principal); R45.851 Suicidal ideations; E11.22 Type 2 diabetes mellitus with diabetic chronic kidney disease; I12.9 Hypertensive chronic kidney disease with stage 1 through stage 4 chronic kidney disease, or unspecified chronic kidney disease; N18.30 Chronic kidney disease, stage 3 unspecified; E78.5 Hyperlipidemia, unspecified; Z79.4 Long term (current) use of insulin; Z79.84 Long term (current) use of oral hypoglycemic drugs; Z79.899 Other long term (current) drug therapy
CPT/HCPCS: 36415; 80048; 80053; 80061; 82010; 82565; 82607; 82746; 82803; 82947; 83036; 84443; 93005

== ENCOUNTER → 2024-04-22 01:04 | Outpatient (BNV) | payer BC, SELFPAY | PROVIDERS: Admitting Provider Psychiatry & Neurology Psychiatry; Visit Provider Social Worker | DX: F33.2 Major depressive disorder, recurrent severe without psychotic features (principal); F11.21 Opioid dependence, in remission | CPT/HCPCS: 90792; 99231; 99238 ==

== ENCOUNTER → 2024-04-22 01:04 | Outpatient (BNV) | payer BC, SELFPAY | PROVIDERS: Admitting Provider Psychiatry & Neurology Psychiatry; Visit Provider Physician Assistant | DX: Z02.2 Encounter for examination for admission to residential institution (principal) | CPT/HCPCS: 99429 ==